=== PATIENT | male | born 1970 | race African-American/Black ===

== ENCOUNTER 2017-09-07 13:46 | Emergency (ER) | payer MEDICAID ==
[~2017-09-07] VITALS: Ht 182.9 cm; Wt 73.0 kg
[2017-09-07 15:11] LABS: BASOPHILS % 0.2 % (0.0-2.0); EOSINOPHILS % 0.3 % (0.0-5.0); HEMATOCRIT. 46.7 % (42.0-52.0); HEMOGLOBIN. 15.4 g/dL (14.0-18.0); LYMPHOCYTES % 20.7 % (20.0-50.0); MEAN CORPUSCULAR HEMOGLOBIN 29.8 pg (28.0-32.0); MEAN PLATELET VOLUME 7.9 fl (7.4-10.4); MONOCYTES % 11.3 % (2.0-8.0); NEUTROPHILS % 67.5 % (40.0-76.0); PLATELET 215 x1000/uL (130-400); RED BLOOD CELL COUNT 5.19 mill/uL (4.7-6.1); RED CELL DISTRIBUTION WIDTH 15.8 % (11.6-14.6)
[2017-09-07 15:18] LABS: CHLORIDE 108 mEq/L (98-107); INR 1.1; PROTHROMBIN TIME 11.6 sec (9.4-11.6)
[2017-09-07 15:24] LABS: ETHANOL BLOOD < 10 mg/dL
[2017-09-07 15:53] LABS: CLARITY URINE CLEAR (CLEAR); COLOR URINE YELLOW (YELLOW); KETONES URINE TRACE (NEGATIVE); LEUKOCYTE ESTERASE URINE NEGATIVE (NEGATIVE); NITRITE URINE NEGATIVE (NEGATIVE); OCCULT BLOOD URINE NEGATIVE (NEGATIVE); PH URINE 5.5 (4.5-8.0); PROTEIN URINE 1+ (NEGATIVE); SPECIFIC GRAVITY URINE 1.026 (1.005-1.030)
[2017-09-07 16:09] LABS: *AMPHETAMINES SCREEN URINE NEGATIVE (NEGATIVE); *BARBITURATES SCREEN URINE NEGATIVE (NEGATIVE); *BENZODIAZEPINES SCREEN URINE NEGATIVE (NEGATIVE); *COCAINE SCREEN URINE PRESUMTIVE POSITIVE (NEGATIVE)
[2017-09-07 16:10] LABS: CANNABINOID URINE SCREEN NEGATIVE (NEGATIVE); METHADONE URINE SCREEN NEGATIVE (NEGATIVE); OPIATES URINE SCREEN NEGATIVE (NEGATIVE); PHENCYCLIDINE URINE SCREEN PRESUMTIVE POSITIVE (NEGATIVE)
[2017-09-07 18:10] VITALS: BP 121/87
== END 2017-09-07 18:24 | disposition home or self-care (01) ==
LOC: ER 14:52
DX: F19.10 Other psychoactive substance abuse, uncomplicated (principal); F16.10 Hallucinogen abuse, uncomplicated
CPT/HCPCS: 36415; 80053; 80305; 80307; 80329; 81003; 85025; 85610; 99284; G0482

== ENCOUNTER 2018-12-03 00:56 | Emergency (ER) | payer MEDICAID ==
[~2018-12-03] VITALS: Ht 182.9 cm; Wt 114.0 kg
[2018-12-03] MEDS ORDERED: KETOROLAC 30MG/ML VIAL IV STA (01:55)
[2018-12-03 02:22] LABS: BASOPHILS % 0.9 % (0.0-2.0); EOSINOPHILS % 0.6 % (0.0-5.0); HEMATOCRIT. 46.2 % (42.0-52.0); HEMOGLOBIN. 15.3 g/dL (14.0-18.0); LYMPHOCYTES % 20.1 % (20.0-50.0); MEAN CORPUSCULAR HEMOGLOBIN 29.2 pg (28.0-32.0); MEAN CORPUSCULAR VOLUME 88.2 fL (80.0-94.0); MEAN PLATELET VOLUME 8.1 fl (7.4-10.4); MONOCYTES % 10.3 % (2.0-8.0); NEUTROPHILS % 68.1 % (40.0-76.0); PLATELET 193 x1000/uL (130-400); RED BLOOD CELL COUNT 5.24 mill/uL (4.7-6.1); RED CELL DISTRIBUTION WIDTH 15.6 % (11.6-14.6)
[2018-12-03 02:25] LABS: CHLORIDE 106 mEq/L (98-107)
[2018-12-03 02:47] LABS: CLARITY URINE CLEAR (CLEAR); COLOR URINE DARK YELLOW (YELLOW); KETONES URINE 1+ (NEGATIVE); LEUKOCYTE ESTERASE URINE TRACE (NEGATIVE); NITRITE URINE NEGATIVE (NEGATIVE); OCCULT BLOOD URINE NEGATIVE (NEGATIVE); PH URINE 5.5 (4.5-8.0); PROTEIN URINE NEGATIVE (NEGATIVE); SPECIFIC GRAVITY URINE 1.027 (1.005-1.030)
[2018-12-03 03:03] LABS: *AMPHETAMINES SCREEN URINE NEGATIVE (NEGATIVE)
[2018-12-03 03:04] LABS: *BARBITURATES SCREEN URINE NEGATIVE (NEGATIVE); *BENZODIAZEPINES SCREEN URINE NEGATIVE (NEGATIVE); *COCAINE SCREEN URINE NEGATIVE (NEGATIVE); METHADONE URINE SCREEN NEGATIVE (NEGATIVE); OPIATES URINE SCREEN NEGATIVE (NEGATIVE)
[2018-12-03 03:05] LABS: CANNABINOID URINE SCREEN NEGATIVE (NEGATIVE); PHENCYCLIDINE URINE SCREEN PRESUMTIVE POSITIVE (NEGATIVE)
[2018-12-03] MEDS ORDERED: CEFTRIAXONE 1 G PREMIX 50 ML IV ONE (04:15)
[2018-12-03 04:55] VITALS: BP 115/69
[2018-12-03] MEDS ORDERED: AZITHROMYCIN 500 MG TABLET PO ONE (05:00)
== END 2018-12-03 05:25 | disposition home or self-care (01) ==
LOC: ER 00:56
DX: N39.0 Urinary tract infection, site not specified (principal); J18.9 Pneumonia, unspecified organism; F16.10 Hallucinogen abuse, uncomplicated; I10 Essential (primary) hypertension; E78.00 Pure hypercholesterolemia, unspecified; Z87.891 Personal history of nicotine dependence
CPT/HCPCS: 36415; 71045; 74176; 80053; 80305; 81003; 83690; 85025; 96374; 96375; 99284; J0696; J1885

== ENCOUNTER 2019-05-19 08:19 | Inpatient (IN) | payer MEDICAID ==
[~2019-05-19] VITALS: Ht 175.3 cm; Wt 106.6 kg
[2019-05-19 09:43] LABS: BASOPHILS % 0.6 % (0.0-2.0); EOSINOPHILS % 1.8 % (0.0-5.0); HEMATOCRIT. 49.5 % (42.0-52.0); LYMPHOCYTES % 23.1 % (20.0-50.0); MEAN CORPUSCULAR HEMOGLOBIN 28.8 pg (28.0-32.0); MEAN CORPUSCULAR VOLUME 88.8 fL (80.0-94.0); MONOCYTES % 12.4 % (2.0-8.0); NEUTROPHILS % 62.1 % (40.0-76.0); PLATELET 161 x1000/uL (130-400); RED BLOOD CELL COUNT 5.57 mill/uL (4.7-6.1); RED CELL DISTRIBUTION WIDTH 16.7 % (11.6-14.6)
[2019-05-19 10:07] LABS: CHLORIDE 108 mEq/L (98-107)
[2019-05-19] MEDS ORDERED: HYDROCODONE/ACETAMINOPHEN 10/325MG TABLET PO ONE (11:30)
[2019-05-19] MEDS ORDERED: ENOXAPARIN 100MG/ML SYR SUBCUT ONE (11:30)
[2019-05-19] MEDS ORDERED: IOHEXOL-350 100 ML BOTTLE ONE (12:08)
[2019-05-19] MEDS ORDERED: GUAIFENESIN 200MG/10ML SUGAR FREE UDC PO PRN (16:00)
[2019-05-19] MEDS ORDERED: DOCUSATE SODIUM 100MG CAPSULE PO PRN (16:00)
[2019-05-19] MEDS ORDERED: HYDROCODONE/ACETAMINOPHEN 5/325MG TABLET PO PRN (16:00)
[2019-05-19] MEDS ORDERED: ONDANSETRON HCL 4MG/2ML INJ IV PRN (16:00)
[2019-05-19] MEDS ORDERED: IPRATROPIUM/ALBUTEROL 0.5-3(2.5)MG/3ML NEB HHN PRN (16:00)
[2019-05-19] MEDS ORDERED: CLONIDINE 0.1MG TABLET PO PRN (16:00)
[2019-05-19] MEDS ORDERED: ACETAMINOPHEN 325MG TABLET PO PRN (16:00)
[2019-05-19] MEDS ORDERED: LORAZEPAM 0.5MG TABLET PO PRN (16:00)
[2019-05-19] MEDS: MORPHINE SULFATE 2 MG/ML CPJ (NOT FOR IM USE) IV PRN ×2 (16:48→21:50)
[2019-05-19 20:45] VITALS: BP 105/66
[2019-05-19] MEDS: ENOXAPARIN 100MG/ML SYR SUBCUT SCH (21:51)
[2019-05-19] MEDS ORDERED: CLOP75TA33 PO (22:29)
[2019-05-19] MEDS ORDERED: NITR0.4T49 SL (22:29)
[2019-05-19] MEDS ORDERED: ATOR-2 PO (22:29)
[2019-05-19] MEDS ORDERED: APIX5TAB PO (22:29)
[2019-05-20] VITALS (7 sets, daily range): BP systolic 93–119; BP diastolic 51–75
[2019-05-20] MEDS: MORPHINE SULFATE 2 MG/ML CPJ (NOT FOR IM USE) IV PRN ×2 (02:12→16:45)
[2019-05-20 06:36] LABS: BASOPHILS % 0.2 % (0.0-2.0); EOSINOPHILS % 1.5 % (0.0-5.0); HEMATOCRIT. 43.4 % (42.0-52.0); HEMOGLOBIN. 14.2 g/dL (14.0-18.0); MEAN CORPUSCULAR VOLUME 88.4 fL (80.0-94.0); MONOCYTES % 10.7 % (2.0-8.0); NEUTROPHILS % 66.6 % (40.0-76.0); PLATELET 155 x1000/uL (130-400); RED BLOOD CELL COUNT 4.91 mill/uL (4.7-6.1); RED CELL DISTRIBUTION WIDTH 16.1 % (11.6-14.6)
[2019-05-20 06:53] LABS: CHLORIDE 105 mEq/L (98-107)
[2019-05-20 07:28] LABS: INR 1.1; PROTHROMBIN TIME 11.4 sec (9.6-11.0)
[2019-05-20] MEDS: ENOXAPARIN 100MG/ML SYR SUBCUT SCH (09:00)
[2019-05-20] MEDS ORDERED: APIXABAN 5 MG TABLET PO SCH (17:45)
[2019-05-20] MEDS ORDERED: APIX5TAB MT (18:04)
[2019-05-27] MEDS ORDERED: APIXABAN 5 MG TABLET PO SCH (17:00)
== END 2019-05-20 21:00 | disposition home or self-care (01) | DRG 134 ==
LOC: ER 09:04 → 7WST 12:26 → EDBEDREQTM 12:32 → EDBEDREQ 12:32 → ENRESERV 19:22 → EDBEDREQ 19:23
PROVIDERS: ADMIT Internal Medicine; ATTEND Internal Medicine
DX: I26.99 Other pulmonary embolism without acute cor pulmonale (principal); J96.11 Chronic respiratory failure with hypoxia; D68.59 Other primary thrombophilia; I42.9 Cardiomyopathy, unspecified; I11.0 Hypertensive heart disease with heart failure; I50.42 Chronic combined systolic (congestive) and diastolic (congestive) heart failure; Z99.81 Dependence on supplemental oxygen; I82.511 Chronic embolism and thrombosis of right femoral vein; I82.531 Chronic embolism and thrombosis of right popliteal vein; E78.00 Pure hypercholesterolemia, unspecified; E78.5 Hyperlipidemia, unspecified; F16.90 Hallucinogen use, unspecified, uncomplicated; R59.0 Localized enlarged lymph nodes; F17.200 Nicotine dependence, unspecified, uncomplicated; I27.82 Chronic pulmonary embolism; Z79.01 Long term (current) use of anticoagulants; Z91.14 Patient's other noncompliance with medication regimen; Z91.19 Patient's noncompliance with other medical treatment and regimen
CPT/HCPCS: 36415; 71045; 71275; 80048; 80053; 83880; 84484; 85025; 93005; 93971; 99285; J1650; J2270; Q9967

== ENCOUNTER 2019-08-22 08:14 | Inpatient (IN) | payer MEDICAID ==
[~2019-08-22] VITALS: Ht 175.3 cm; Wt 108.0 kg
[~2019-08-22 08:14] MED LIST: APIX5TAB MT; ATOR-2 PO; CLOP75TA33 PO; NITR0.4T49 SL
[2019-08-22 09:09] LABS: BASOPHILS % 0.5 % (0.0-2.0); EOSINOPHILS % 1.9 % (0.0-5.0); HEMATOCRIT. 46.4 % (42.0-52.0); HEMOGLOBIN. 15.3 g/dL (14.0-18.0); LYMPHOCYTES % 28.5 % (20.0-50.0); MEAN CORPUSCULAR HEMOGLOBIN 29.5 pg (28.0-32.0); MEAN CORPUSCULAR VOLUME 89.3 fL (80.0-94.0); MEAN PLATELET VOLUME 8.1 fl (7.4-10.4); MONOCYTES % 10.8 % (2.0-8.0); NEUTROPHILS % 58.3 % (40.0-76.0); PLATELET 213 x1000/uL (130-400); RED BLOOD CELL COUNT 5.19 mill/uL (4.7-6.1); RED CELL DISTRIBUTION WIDTH 17.1 % (11.6-14.6)
[2019-08-22 09:11] LABS: CHLORIDE 107 mEq/L (98-107)
[2019-08-22 09:15] LABS: PROTHROMBIN TIME 10.7 sec (9.6-11.0)
[2019-08-22] MEDS ORDERED: ENOXAPARIN 80MG/0.8ML SYR SUBCUT ONE (09:45)
[2019-08-22] MEDS ORDERED: ENOXAPARIN 80MG/0.8ML SYR SUBCUT SCH (10:00)
[2019-08-22] MEDS ORDERED: HYDROCODONE/ACETAMINOPHEN 5/325MG TABLET PO PRN (13:45)
[2019-08-22] MEDS ORDERED: ONDANSETRON HCL 4MG/2ML INJ IV PRN (13:45)
[2019-08-22] MEDS ORDERED: GUAIFENESIN 200MG/10ML SUGAR FREE UDC PO PRN (13:45)
[2019-08-22] MEDS ORDERED: LORAZEPAM 2MG/ML CPJ IV PRN (13:45)
[2019-08-22] MEDS ORDERED: ACETAMINOPHEN 325MG TABLET PO PRN (13:45)
[2019-08-22] MEDS ORDERED: MORPHINE SULFATE 2 MG/ML CPJ (NOT FOR IM USE) IV PRN (13:45)
[2019-08-22] MEDS ORDERED: DIPHENHYDRAMINE 50MG/ML VIAL IV PRN (13:45)
[2019-08-22] MEDS ORDERED: CLONIDINE 0.1MG TABLET PO PRN (13:45)
[2019-08-22] MEDS ORDERED: MAGNESIUM/ALUMINUM HYDROXIDE/SIMETHICONE 30ML UDC PO PRN (13:45)
[2019-08-22] MEDS ORDERED: NA PHOS,M-B/NA PHOS,DI-BA ENEMA 118ML PR PRN (13:45)
[2019-08-22] MEDS ORDERED: IPRATROPIUM/ALBUTEROL 0.5-3(2.5)MG/3ML NEB NEB PRN (13:45)
[2019-08-22] MEDS ORDERED: DOCUSATE SODIUM 100MG CAPSULE PO PRN (13:45)
[2019-08-22 19:12] LABS: CHLORIDE 105 mEq/L (98-107)
[2019-08-22 22:35] VITALS: BP 139/97
[2019-08-23] VITALS: BP 135/71
[2019-08-23 04:00] VITALS: BP 91/55
[2019-08-23 08:00] VITALS: BP 120/70
[2019-08-23 08:34] LABS: BASOPHILS % 0.4 % (0.0-2.0); EOSINOPHILS % 2.2 % (0.0-5.0); HEMATOCRIT. 42.5 % (42.0-52.0); HEMOGLOBIN. 13.9 g/dL (14.0-18.0); MEAN CORPUSCULAR VOLUME 88.8 fL (80.0-94.0); MEAN PLATELET VOLUME 7.6 fl (7.4-10.4); MONOCYTES % 8.2 % (2.0-8.0); NEUTROPHILS % 66.2 % (40.0-76.0); PLATELET 218 x1000/uL (130-400); RED BLOOD CELL COUNT 4.79 mill/uL (4.7-6.1)
[2019-08-23 08:43] LABS: CHLORIDE 106 mEq/L (98-107)
[2019-08-23 08:50] LABS: LDL CHOLESTEROL 138 mg/dL (5-100)
[2019-08-23 08:51] LABS: HDL CHOLESTEROL 39 mg/dL (40-59); T4 FREE 0.97 ng/dL (0.76-1.46)
[2019-08-23] MEDS: ENOXAPARIN 100MG/ML SYR SUBCUT SCH ×2 (10:08→22:36)
[2019-08-23 20:00] VITALS: BP 90/57
[2019-08-24] VITALS: BP 94/62
[2019-08-24 04:00] VITALS: BP 92/59
[2019-08-24 08:00] VITALS: BP 100/73
[2019-08-24 11:02] VITALS: BP 100/73
[2019-08-24] MEDS: ENOXAPARIN 100MG/ML SYR SUBCUT SCH (11:21)
== END 2019-08-24 11:45 | disposition home or self-care (01) | DRG 197 ==
LOC: ER 08:14 → 6WST 11:42 → ENRESERV 21:42
PROVIDERS: ADMIT Internal Medicine; ATTEND Internal Medicine
DX: I82.411 Acute embolism and thrombosis of right femoral vein (principal); I82.431 Acute embolism and thrombosis of right popliteal vein; E78.00 Pure hypercholesterolemia, unspecified; E78.5 Hyperlipidemia, unspecified; I10 Essential (primary) hypertension; Z79.01 Long term (current) use of anticoagulants; Z79.02 Long term (current) use of antithrombotics/antiplatelets; Z91.14 Patient's other noncompliance with medication regimen; Z79.899 Other long term (current) drug therapy
CPT/HCPCS: 36415; 80048; 80053; 80061; 84439; 84443; 84484; 85025; 93971; 99285; J1650

== ENCOUNTER 2019-11-07 16:32 | Emergency (ER) | payer MEDICAID ==
[~2019-11-07] VITALS: Ht 175.3 cm; Wt 107.0 kg
[2019-11-07] MEDS ORDERED: HYDROCODONE/ACETAMINOPHEN 5/325MG TABLET PO ONE (19:15)
[2019-11-07 19:50] VITALS: BP 120/90
== END 2019-11-07 19:57 | disposition home or self-care (01) ==
LOC: ER 16:32
DX: S80.01XA Contusion of right knee, initial encounter (principal); I10 Essential (primary) hypertension; E78.00 Pure hypercholesterolemia, unspecified; Z86.718 Personal history of other venous thrombosis and embolism; Z79.01 Long term (current) use of anticoagulants; Z91.14 Patient's other noncompliance with medication regimen; W01.0XXA Fall on same level from slipping, tripping and stumbling without subsequent striking against object, initial encounter; Y93.89 Activity, other specified; Y92.488 Other paved roadways as the place of occurrence of the external cause
CPT/HCPCS: 93005; 99283

== ENCOUNTER 2019-11-08 13:57 | Emergency (ER) | payer MEDICAID ==
[~2019-11-08] VITALS: Ht 180.3 cm; Wt 95.0 kg
[2019-11-08] MEDS ORDERED: SODIUM CHLORIDE 0.9% 1,000 ML IV ONE (14:21)
[2019-11-08 15:39] LABS: BASOPHILS % 0.9 % (0.0-2.0); EOSINOPHILS % 0.7 % (0.0-5.0); HEMATOCRIT. 45.4 % (42.0-52.0); HEMOGLOBIN. 14.9 g/dL (14.0-18.0); LYMPHOCYTES % 25.7 % (20.0-50.0); MEAN CORPUSCULAR HEMOGLOBIN 29.1 pg (28.0-32.0); MEAN CORPUSCULAR VOLUME 88.6 fL (80.0-94.0); MEAN PLATELET VOLUME 7.5 fl (7.4-10.4); MONOCYTES % 11.2 % (2.0-8.0); NEUTROPHILS % 61.5 % (40.0-76.0); PLATELET 230 x1000/uL (130-400); RED BLOOD CELL COUNT 5.12 mill/uL (4.7-6.1); RED CELL DISTRIBUTION WIDTH 16.8 % (11.6-14.6)
[2019-11-08 15:44] LABS: CHLORIDE 111 mEq/L (98-107)
[2019-11-08 15:48] LABS: ETHANOL BLOOD < 10 mg/dL
[2019-11-08 16:10] VITALS: BP 118/68
== END 2019-11-08 19:23 | disposition left against medical advice (07) ==
LOC: ER 13:57
DX: T40.995A Adverse effect of other psychodysleptics [hallucinogens], initial encounter (principal); V49.49XA Driver injured in collision with other motor vehicles in traffic accident, initial encounter; Y92.89 Other specified places as the place of occurrence of the external cause; Y93.89 Activity, other specified; Y99.8 Other external cause status; E78.00 Pure hypercholesterolemia, unspecified; I10 Essential (primary) hypertension; Z79.899 Other long term (current) drug therapy
CPT/HCPCS: 36415; 70450; 80053; 80307; 80320; 80329; 85025; 99284; J7030; G0480

== ENCOUNTER 2019-11-10 22:51 | Emergency (ER) | payer MEDICAID ==
[~2019-11-10] VITALS: Ht 177.8 cm; Wt 100.0 kg
[2019-11-10 22:58] VITALS: BP 132/80
[2019-11-10] MEDS ORDERED: IBUPROFEN 600MG TABLET PO ONE (23:45)
== END 2019-11-11 00:49 | disposition home or self-care (01) ==
LOC: ER 22:51
DX: I82.511 Chronic embolism and thrombosis of right femoral vein (principal); F16.10 Hallucinogen abuse, uncomplicated; I10 Essential (primary) hypertension; E78.00 Pure hypercholesterolemia, unspecified
CPT/HCPCS: 93970; 99284

== ENCOUNTER 2020-05-24 15:18 | Emergency (ER) | payer MEDICAID ==
[~2020-05-24] VITALS: Ht 182.9 cm; Wt 82.0 kg
[2020-05-24] MEDS ORDERED: SODIUM CHLORIDE 0.9% 1,000 ML IV ONE (16:30)
[2020-05-24 16:41] LABS: BASOPHILS % 0.5 % (0.0-2.0); EOSINOPHILS % 0.9 % (0.0-5.0); HEMOGLOBIN. 12.4 g/dL (14.0-18.0); LYMPHOCYTES % 25.4 % (20.0-50.0); MEAN CORPUSCULAR HEMOGLOBIN 23.5 pg (28.0-32.0); MEAN CORPUSCULAR VOLUME 76.1 fL (80.0-94.0); MEAN PLATELET VOLUME 7.8 fl (7.4-10.4); NEUTROPHILS % 60.2 % (40.0-76.0); PLATELET 229 x1000/uL (130-400); RED BLOOD CELL COUNT 5.26 mill/uL (4.7-6.1); RED CELL DISTRIBUTION WIDTH 21.9 % (11.6-14.6)
[2020-05-24 16:46] LABS: CHLORIDE 106 mEq/L (98-107)
[2020-05-24 16:52] LABS: ETHANOL BLOOD < 10 mg/dL
[2020-05-24 17:19] LABS: *AMPHETAMINES SCREEN URINE NEGATIVE (NEGATIVE); *BARBITURATES SCREEN URINE NEGATIVE (NEGATIVE); *BENZODIAZEPINES SCREEN URINE NEGATIVE (NEGATIVE); *COCAINE SCREEN URINE NEGATIVE (NEGATIVE); CANNABINOID URINE SCREEN NEGATIVE (NEGATIVE); METHADONE URINE SCREEN NEGATIVE (NEGATIVE); OPIATES URINE SCREEN NEGATIVE (NEGATIVE); PHENCYCLIDINE URINE SCREEN PRESUMTIVE POSITIVE (NEGATIVE)
[2020-05-24 18:33] VITALS: BP 143/93
== END 2020-05-24 18:54 | disposition home or self-care (01) ==
LOC: ER 15:18
DX: T40.995A Adverse effect of other psychodysleptics [hallucinogens], initial encounter (principal); X58.XXXA Exposure to other specified factors, initial encounter; Z79.899 Other long term (current) drug therapy
CPT/HCPCS: 36415; 80053; 80305; 80320; 85025; 93005; 96360; 99284; J7030; G0480